=== PATIENT | female | born 1975 | race African-American/Black ===

== ENCOUNTER 2019-02-18 14:44 | Emergency (ER) | payer BC ==
[~2019-02-18] VITALS: Ht 167.6 cm; Wt 95.3 kg
[2019-02-18] MEDS ORDERED: methylPREDNISolone SOD SUCC PF 125 MG/2 ML VIAL. IV ONE (14:45)
[2019-02-18] MEDS ORDERED: diphenhydrAMINE 50 MG/ML VIAL IVP ONE (14:45)
[2019-02-18] MEDS ORDERED: FAMOTIDINE 20 MG/2 ML VIAL IVP ONE (14:45)
[2019-02-18] MEDS ORDERED: IV NORMAL SALINE 1000ML BAG 1,000 ML IV ONE (14:45)
[2019-02-18 14:54] VITALS: BP 178/90
--- NOTE | 2019-02-18 14:54 | PHYS DOC ---
Adult General Chief Complaint Chief Complaint: ALLERGIC REACTION HPI HPI Patient is a 43 year old female who presents with complaining of facial swelling and rash. Patient state she was picking up an old shelf from somebody's correlation with loss of dust and dirt and suddenly felt itching of her face and cubital area of swelling of eyelids and nasal congestion without shortness of breath, chest pain, nausea and vomiting, history of the same problem. Patient drove to the hospital by herself. Review of Systems Review of Systems Constitutional: Denies fever or chills [] Eyes: Denies change in visual acuity, redness, or eye pain [] HENT: Denies nasal congestion or sore throat [] Respiratory: Denies cough or shortness of breath [] Cardiovascular: No additional information not addressed in HPI [] GI: Denies abdominal pain, nausea, vomiting, bloody stools or diarrhea [] : Denies dysuria or hematuria [] Musculoskeletal: Denies back pain or joint pain [] Integument: Reports rash and itching Neurologic: Denies headache, focal weakness or sensory changes [] Endocrine: Denies polyuria or polydipsia [] All other systems were reviewed and found to be within normal limits, except as documented in this note. Current Medications Current Medications Current Medications Medications (Trade) Dose Ordered Sig/Calvin Start Time Stop Time Status Last Admin Dose Admin Diphenhydramine HCl (Benadryl) 50 mg 1X ONCE 02/18/19 14:45 02/18/19 15:04 DC 02/18/19 14:58 50 MG Famotidine (Pepcid Vial) 20 mg 1X ONCE 02/18/19 14:45 02/18/19 15:04 DC 02/18/19 14:58 20 MG Methylprednisolone Sodium Succinate (SOLU-Medrol 125MG VIAL) 125 mg 1X ONCE 02/18/19 14:45 02/18/19 15:04 DC 02/18/19 14:58 125 MG Sodium Chloride 1,000 ml @ 1,000 mls/hr 1X ONCE 02/18/19 14:45 02/18/19 15:44 DC 02/18/19 14:58 1,000 MLS/HR Allergies Allergies Allergies Coded Allergies Type Severity Reaction Last Updated Verified No Known Drug Allergies 02/18/19 No Physical Exam Physical Exam Constitutional: Well developed, well nourished, mild distress, non-toxic appearance. [] HENT: Normocephalic, atraumatic, bilateral external ears normal, oropharynx moist, no oral exudates, nasal congestion, facial erythema. [] Eyes: PERRLA, EOMI, conjunctiva edema, upper and lower eyelids edema, no discharge. [] Neck: Normal range of motion, no tenderness, supple, no stridor. [] Cardiovascular:Heart rate regular rhythm, no murmur [] Lungs & Thorax: Bilateral breath sounds clear to auscultation [] Abdomen: Bowel sounds normal, soft, no tenderness, no masses, no pulsatile masses. [] Skin: Warm, dry, papular rash on neck an bilateral cubital area Back: No tenderness, no CVA tenderness. [] Extremities: No tenderness, no cyanosis, no clubbing, ROM intact, no edema. [] Neurologic: Alert and oriented X 3, normal motor function, normal sensory function, no focal deficits noted. [] Psychologic: Affect normal, judgement normal, mood normal. [] Current Patient Data Vital Signs Vital Signs Date Time Temp Pulse Resp B/P (MAP) Pulse Ox O2 Delivery O2 Flow Rate FiO2 02/18/19 14:54 98.6 64 20 100 98.6 EKG EKG [] Radiology/Procedures Radiology/Procedures [] Course & Med Decision Making Course & Med Decision Making Pertinent Labs reviewed. (See chart for details) Evaluation of patient in ER showed 51-year-old patient with contact dermatitis and rash of face and upper extremities and eyelid edema after exposure to old samuel shelf without shortness of breath. Patient treated with IV fluids, menses, Pepcid and Solu-Medrol with improvement of her condition. She took a over after finishing treatment in ER and was advised to take prescription medication and follow up with her primary care physician. Dragon Disclaimer Dragon Disclaimer This electronic medical record was generated, in whole or in part, using a voice recognition dictation system. Departure Departure Impression: Primary Impression: Allergic reaction Disposition: HOME, SELF-CARE (at 1546) Condition: IMPROVED Patient Instructions: Rash Additional Instructions: Drink plenty of liquids Follow-up with your primary care physician in 3-5 days Return to ER if not getting better Scripts Methylprednisolone (MEDROL) 4 Mg Tab.ds.pk 1 PKG PO UD for inflammation, #1 PKG Prov: KOUSHA,NICK MD 02/18/19 Hydroxyzine Hcl (HYDROXYZINE HCL) 25 Mg Tablet 1 TAB PO TID PRN for itching, #30 TAB Prov: NICK MONTERROSO MD 02/18/19 Problem Qualifiers Primary Impression: Allergic reaction Encounter type: initial encounter Qualified Codes: T78.40XA - Allergy, unspecified, initial encounter NICK MONTERROSO MD Feb 18, 2019 14:54
[2019-02-18] MEDS ORDERED: HYDR25TA PO (15:45)
[2019-02-18] MEDS ORDERED: METH4TAB2 PO (15:45)
== END 2019-02-18 16:52 | disposition home or self-care (01) ==
LOC: ER 14:44
DX: T78.40XA Allergy, unspecified, initial encounter (principal)
CPT/HCPCS: 96374; 96375; 99284; J1200; J2930; J3490; J7030; 96361

== ENCOUNTER 2020-06-05 10:04 | Inpatient (IN) | payer OTHER ==
[~2020-06-05] VITALS: Ht 167.6 cm; Wt 105.3 kg
[~2020-06-05 10:04] MED LIST: HYDR25TA PO; METH4TAB2 PO
[2020-06-05] MEDS ORDERED: ASPIRIN 325 MG TABLET PO ONE (10:15)
[2020-06-05] MEDS ORDERED: IV NORMAL SALINE 1000ML BAG 1,000 ML IV ONE (10:15)
[2020-06-05] MEDS ORDERED: DEXAMETHASONE SOD PHOS 4 MG/ML VIAL IVP ONE (10:15)
--- NOTE | 2020-06-05 10:29 | PHYS DOC ---
Past Medical History Past Medical History: Depression, Other Additional Past Medical Histor: SVT Past Surgical History: Cholecystectomy Smoking Status: Never Smoker Alcohol Use: Rarely Drug Use: None General Adult EDM: Chief Complaint: CHEST PAIN HPI: HPI: Patient is a 44 year old female presents with report of sudden episode of midsternal chest pain that radiated to her left chest that started approximately 1 hour prior to arrival. Patient reports she became nauseated and vomited x3. Patient also reports associated diaphoresis. Patient reports pain has significantly improved since onset. Patient does report she was tested for COVID-19 on 05/29/2020 which came back positive. Patient had had some headache, subjective fever and chills, nasal congestion, and body aches. Reports those sy mptoms have improved. Denies shortness of breath, any leg swelling, or calf tenderness. Denies trauma. Patient reports cardiac risk factors of significant family history of CAD including father with heart attack in his 50s. Patient also reports father with history of PE/DVT. Review of Systems: Review of Systems: Constitutional: Reports subjective fever and chills and body aches Eyes: Denies redness or eye pain HENT: Denies nasal congestion or sore throat Respiratory: Denies cough or shortness of breath Cardiovascular: Reports chest pain; denies palpitations GI: Denies abdominal pain; reports nausea and vomiting : Denies dysuria or hematuria Musculoskeletal: Denies back pain or leg pain Integument: Denies rash or skin lesions Neurologic: Reports headache; denies focal weakness or sensory changes Complete systems were reviewed and found to be within normal limits, except as documented in this note. Heart Score: HEART Score for Chest Pain: HEART Score for Chest Pain Response (Comments) Value History Moderately Suspicious 1 ECG Normal 0 Age < 45 0 Risk Factors 1 or 2 Risk Factors 1 Troponin < Normal Limit 0 Total 2 Risk Factors: Risk Factors: DM, Current or recent (<one month) smoker, HTN, HLP, family history of CAD, obesity. Risk Scores: Score 0 - 3: 2.5% MACE over next 6 weeks - Discharge Home Score 4 - 6: 20.3% MACE over next 6 weeks - Admit for Clinical Observation Score 7 - 10: 72.7% MACE over next 6 weeks - Early Invasive Strategies Current Medications: Current Medications Medications (Trade) Dose Ordered Sig/Calvin Start Time Stop Time Status Last Admin Dose Admin Aspirin (Bartolo Aspirin) 325 mg 1X ONCE 06/05/20 10:15 06/05/20 10:17 DC Dexamethasone Sodium Phosphate (Decadron) 10 mg 1X ONCE 06/05/20 10:15 06/05/20 10:17 DC Sodium Chloride 1,000 ml @ 1,000 mls/hr 1X ONCE 06/05/20 10:15 06/05/20 11:14 Allergies: Allergies: Allergies Coded Allergies Type Severity Reaction Last Updated Verified No Known Drug Allergies 02/18/19 No Physical Exam: PE: Constitutional: Well developed, well nourished, no acute distress, non-toxic appearance HENT: Normocephalic, atraumatic Eyes: Conjunctiva normal, no discharge Neck: Normal range of motion, no tenderness, supple Lungs & Thorax: No respiratory distress, equal chest rise and fall Abdomen: Soft, no tenderness, no guarding/rebound tenderness/distention Skin: Warm, dry, no erythema, no rash Back: No tenderness, no CVA tenderness Extremities: No tenderness, ROM intact, no edema Neurologic: Alert and oriented X 3, no focal deficits noted Psychologic: Affect normal, judgment normal Current Patient Data: Vital Signs: Vital Signs Date Time Temp Pulse Resp B/P (MAP) Pulse Ox O2 Delivery O2 Flow Rate FiO2 06/05/20 10:12 97.7 68 16 178/89 (118) 97 Room Air 97.7 EKG: EKG: @1014 NSR at 63bpm, J point elevation noted to I and aVL, QRS 96ms, QT/QTc 438/452ms, t wave inversion III Radiology/Procedures: Radiology/Procedures: PROCEDURE: CT ANGIOGRAPHY CHEST CTA scan of the Chest with Contrast (Pulmonary Embolism protocol) 06/05/2020 Clinical History: Chest pain. Covid 19. Technique: After the intravenous administration of 100 cc of Omnipaque 350, contiguous, 0.625 mm axial sections were obtained through the chest. 2 mm axial and 3D MIP coronal and sagittal reconstructed images were obtained. One or more of the following individualized dose reduction techniques were utilized for this study: 1. Automated exposure control. 2. Adjustment of the mA and/or kV according to patient size. 3. Use of iterative reconstruction technique. Findings: No filling defect is seen within the major branches of either pulmonary artery. There is no CT evidence of pulmonary embolism. The heart and thoracic aorta are within normal limits. No acute pulmonary infiltrate, pleural effusion or pneumothorax is seen. Images through the upper abdomen demonstrate decreased attenuation of the liver parenchyma consistent with fatty infiltration. Minimal S-shaped curvature of the thoracolumbar spine is seen. Degenerative changes are seen involving the thoracic spine. Impression: There is no CT evidence of pulmonary embolism. Electronically signed by: Emmett Jane MD (06/05/2020 12:09 PM) [id number] Course & Med Decision Making: Course & Med Decision Making Pertinent Labs and Imaging studies reviewed. (See chart for details) Patient presents with sudden onset of atypical chest discomfort. Reports associated diaphoresis and nausea/vomiting x3 episodes. Patient with cardiac risk factors of significant family history. Patient also has risk factors of PE/DVT including family history and currently is COVID-19 positive. COVID-19 testing positive on 05/29/2020. COVID-[address] EKG stable. Labs obtained and posted to chart. Initial troponin within normal limits. Lipase greater than 2000. CTA chest without PE or other acute finding. Patient requiring admission for further evaluation and treatment. Discussed with Dr. Hopkins (hospitalist) who is in agreement with admission. Discussed findings and plan with patient, who acknowledges understanding and agreement. Keily Disclaimer: Keily Disclaimer: This electronic medical record was generated, in whole or in part, using a voice recognition dictation system. Departure Departure Impression: Primary Impression: Acute pancreatitis Qualified Codes: K85.90 - Acute pancreatitis without necrosis or infection, unspecified Additional Impressions: Atypical chest pain COVID-19 Disposition: ADMITTED INPT THIS HOSP Admitting Physician: EVETTE Sapp) Condition: STABLE Referrals: LATOYA CARD MSN, RN, STEAM ENGINEER (PCP) APOORVA HOU DO Jun 05, 2020 10:29
[2020-06-05] MEDS ORDERED: DEXAMETHASONE SOD PHOS 20 MG/5 ML VIAL. ONE (10:31)
[2020-06-05 10:47] LABS: CALCIUM 8.8 mg/dL (8.5-10.1); GFR 73.6; POTASSIUM 3.7 mmol/L (3.5-5.1)
[2020-06-05 10:58] LABS: BASO % 1 % (0-3); EOS # 0.1 x10^3/uL (0.0-0.7); EOS % 2 % (0-3); HEMATOCRIT 44.8 % (36.0-47.0); LYMPH # 2.2 x10^3/uL (1.0-4.8); LYMPH % 39 % (24-48); MEAN CORPUSCULAR HEMOGLOBIN 30 pg (25-35); MEAN CORPUSCULAR HGB CONC 34 g/dL (31-37); MEAN CORPUSCULAR VOLUME 88 fL (79-100); MONO # 0.4 x10^3/uL (0.0-1.1); MONO % 6 % (0-9); NEUT % 52 % (31-73); PLATELET COUNT 211 x10^3/uL (140-400); WHITE BLOOD COUNT 5.8 x10^3/uL (4.0-11.0)
[2020-06-05 10:59] LABS: ALBUMIN 3.4 g/dL (3.4-5.0); ALBUMIN/GLOBULIN RATIO 0.8 (1.0-1.7); MAGNESIUM 1.7 mg/dL (1.8-2.4); TOTAL BILIRUBIN 0.6 mg/dL (0.2-1.0); TOTAL PROTEIN 7.5 g/dL (6.4-8.2)
[2020-06-05 11:02] LABS: CREATINE KINASE 72 U/L (26-192)
[2020-06-05 11:23] LABS: PREG TEST PT QUAL NEGATIVE (NEG)
[2020-06-05] MEDS ORDERED: MAGNESIUM SULFATE 2GM 50 ML IV ONE (11:30)
[2020-06-05] MEDS ORDERED: IOHEXOL 350 MG/ML 100 ML VIAL. IV ONE (11:45)
[2020-06-05] MEDS ORDERED: CONTRAST GIVEN. MC PRN (11:45)
--- NOTE | 2020-06-05 12:12 | RAD ---
CTA scan of the Chest with Contrast (Pulmonary Embolism protocol) 06/05/2020 Clinical History: Chest pain. Covid 19. Technique: After the intravenous administration of 100 cc of Omnipaque 350, contiguous, 0.625 mm axia l sections were obtained through the chest. 2 mm axial and 3D MIP coronal and sagittal reconstructed images were obtained. One or more of the following individualized dose reduction techniques were utilized for this study: 1. Automated exposure control. 2. Adjustment of the mA and/or kV according to patient size. 3. Use of iterative reconstruction technique. Findings: No filling defect is seen within the major branches of either pulmonary artery. There is n o CT evidence of pulmonary embolism. The heart and thoracic aorta are within normal limits. No acute pulmonary infiltrate, pleural effusion or pneumothorax is seen. Images through the upper abdomen demonstrate decreased attenuation of the liver parenchyma consistent with fatty infiltration. Minimal S-shaped curvature of the thoracolumbar spine is seen. Degenerative changes are seen involvin g the thoracic spine. Impression: There is no CT evidence of pulmonary embolism. Electronically signed by: Emmett Jane MD (06/05/2020 12:09 PM) [id number]
[2020-06-05] MEDS ORDERED: fentaNYL PF VIAL 100 MCG/2 ML VIAL IV PRN (13:00)
[2020-06-05] MEDS ORDERED: ONDANSETRON PF 4 MG/2 ML VIAL. IV PRN ×2 (13:00→13:15)
[2020-06-05 13:14] LABS: BILIRUBIN,URINE NEGATIVE (NEG); CLARITY,URINE CLEAR; COLOR,URINE YELLOW; NITRITE,URINE NEGATIVE (NEG); PROTEIN,URINE NEGATIVE (NEG-TRACE); UROBILINOGEN,URINE 0.2 mg/dL (0.2 mg/dL)
[2020-06-05] MEDS ORDERED: DOCUSATE SODIUM 100 MG CAPSULE. PO PRN (13:15)
[2020-06-05] MEDS ORDERED: diphenhydrAMINE 50 MG/ML VIAL IVP PRN (13:15)
[2020-06-05] MEDS ORDERED: ZOLPIDEM 5 MG TABLET. PO PRN (13:15)
[2020-06-05] MEDS ORDERED: ACETAMINOPHEN 325 MG TABLET. PO PRN (13:15)
[2020-06-05] MEDS ORDERED: guaiFENesin ORAL 200 MG/10 ML LIQUID. PO PRN (13:15)
[2020-06-05 13:20] LABS: BACTERIA,URINE MODERATE /HPF (0-FEW)
[2020-06-05 13:21] LABS: RBC,URINE OCC /HPF (0-2)
[2020-06-05] MEDS: IV NORMAL SALINE 1000ML BAG 1,000 ML IV SCH ×2 (14:10→23:00)
[2020-06-05 15:00] VITALS: BP 140/93
--- NOTE | 2020-06-05 16:55 | PDOC2 ---
GI CONSULT Date of Service: DATE: 06/05/20 TIME: 16:44 Reason For Consult: pancreatitis HPI: HPI: 44 y/o female admitted through ER. COVID + 05/29/20 - has had fatigue, aches, and sinus congestion. Today developed pain - first described as left-sided chest pain and later says in central chest/epigastrium. Character of pain is difficult to describe. Associated w/ vomiting x 1 after eating grapefruit so emesis looked a little pink/red. Pain-free currently. Similar pain has occurred twice in the past - always after taking pain medication (names ibuprofen and Vicodin). Had cardiac workup once that was normal. No pancreatitis diagnosis in the past but does have a long h/o "GI pain" (upper abdominal discomfort and bloating toward the end of the day) and alternating bowel habits. Feels better when she eats healthy. S/p cholecystectomy at a few years ago for biliary dyskinesia. No previous EGD but recalls normal colonoscopy in her 20s (done for "GI pain"). No reflux/heartburn, dysphagia, hematochezia, melena, or weight loss. Most recent stools were a little loose. Mentions she was "sorta a bingey-drinker 20 years ago" but no longer drinks. PMH: PMH: anxiety, depression, SVT during cholecystectomy, x 2, tonsillectomy FH: Family History: No pertinent hx (deneis GI cancers, pancreatitis) Social History: Smoke: Quit ALCOHOL: other (some binge-drinking 20 years ago, none now) Drugs: None ROS: GEN: fatigue HEENT: sinus congestion CV: Denies chest pain RESP: Denies shortness of air, cough GI: Per HPI : Denies hematuria, dysuria ENDO: Denies weight changes NEURO: Denies confusion, dizziness MSK: bodyaches SKIN: Denies jaundice, pruritus Vitals: Vitals: Vital Signs Date Time Temp Pulse Resp B/P (MAP) Pulse Ox O2 Delivery O2 Flow Rate FiO2 06/05/20 16:02 Room Air 06/05/20 15:00 96.7 68 13 140/93 (109) 96.7 06/05/20 14:30 94 Labs: Labs: Laboratory Tests Test 06/05/20 10:25 06/05/20 13:00 06/05/20 16:10 White Blood Count 5.8 x10^3/uL (4.0-11.0) Red Blood Count 5.10 x10^6/uL (3.50-5.40) Hemoglobin 15.0 g/dL (12.0-15.5) Hematocrit 44.8 % (36.0-47.0) Mean Corpuscular Volume 88 fL (79-100) Mean Corpuscular Hemoglobin 30 pg (25-35) Mean Corpuscular Hemoglobin Concent 34 g/dL (31-37) Red Cell Distribution Width 13.0 % (11.5-14.5) Platelet Count 211 x10^3/uL (140-400) Neutrophils (%) (Auto) 52 % (31-73) Lymphocytes (%) (Auto) 39 % (24-48) Monocytes (%) (Auto) 6 % (0-9) Eosinophils (%) (Auto) 2 % (0-3) Basophils (%) (Auto) 1 % (0-3) Neutrophils # (Auto) 3.0 x10^3/uL (1.8-7.7) Lymphocytes # (Auto) 2.2 x10^3/uL (1.0-4.8) Monocytes # (Auto) 0.4 x10^3/uL (0.0-1.1) Eosinophils # (Auto) 0.1 x10^3/uL (0.0-0.7) Basophils # (Auto) 0.0 x10^3/uL (0.0-0.2) Sodium Level 138 mmol/L (136-145) Potassium Level 3.7 mmol/L (3.5-5.1) Chloride Level 106 mmol/L (98-107) Carbon Dioxide Level 27 mmol/L (21-32) Anion Gap 5 (6-14) Blood Urea Nitrogen 17 mg/dL (7-20) Creatinine 1.0 mg/dL (0.6-1.0) Estimated GFR (Cockcroft-Gault) 73.6 BUN/Creatinine Ratio 17 (6-20) Glucose Level 109 mg/dL (70-99) Lactic Acid Level 1.4 mmol/L (0.4-2.0) Calcium Level 8.8 mg/dL (8.5-10.1) Magnesium Level 1.7 mg/dL (1.8-2.4) Total Bilirubin 0.6 mg/dL (0.2-1.0) Aspartate Amino Transf (AST/SGOT) 30 U/L (15-37) Alanine Aminotransferase (ALT/SGPT) 38 U/L (14-59) Alkaline Phosphatase 83 U/L (46-116) Creatine Kinase 72 U/L (26-192) Creatine Kinase MB (Mass) 0.6 ng/mL (0.0-3.6) Creatine Kinase MB Relative Index % (0-4) Troponin I Quantitative < 0.017 ng/mL (0.000-0.055) < 0.017 ng/mL (0.000-0.055) < 0.017 ng/mL (0.000-0.055) IA-Ioz-P-Type Natriuretic Peptide 28 pg/mL (0-124) Total Protein 7.5 g/dL (6.4-8.2) Albumin 3.4 g/dL (3.4-5.0) Albumin/Globulin Ratio 0.8 (1.0-1.7) Lipase 2113 U/L (73-393) Serum Test, Qualitative Negative (NEG) Urine Collection Type Unknown Urine Color Yellow Urine Clarity Clear Urine pH 6.0 (<5.0-8.0) Urine Specific [place] >=1.030 (1.000-1.030) Urine Protein Negative mg/dL (NEG-TRACE) Urine Glucose (UA) Negative mg/dL (NEG) Urine Ketones (Stick) Negative mg/dL (NEG) Urine Blood Negative (NEG) Urine Nitrite Negative (NEG) Urine Bilirubin Negative (NEG) Urine Urobilinogen Dipstick 0.2 mg/dL (0.2 mg/dL) Urine Leukocyte Esterase Small (NEG) Urine RBC Occ /HPF (0-2) Urine WBC 5-10 /HPF (0-4) Urine Squamous Epithelial Cells Many /LPF Urine Bacteria Moderate /HPF (0-FEW) Ethyl Alcohol Level < 10 mg/dL (0-10) Allergies: Coded Allergies: No Known Drug Allergies (Unverified , 02/18/19) Medications: Current Medications Medications (Trade) Dose Ordered Sig/Calvin Route PRN Reason Start Time Stop Time Status Last Admin Dose Admin Aspirin (Bartolo Aspirin) 325 mg 1X ONCE PO 06/05/20 10:15 06/05/20 10:17 DC 06/05/20 10:38 Sodium Chloride 1,000 ml @ 1,000 mls/hr 1X ONCE IV 06/05/20 10:15 06/05/20 11:14 DC 06/05/20 10:38 Dexamethasone Sodium Phosphate (Decadron) 10 mg 1X ONCE IVP 06/05/20 10:15 06/05/20 10:17 DC 06/05/20 10:36 Magnesium Sulfate 50 ml @ 25 mls/hr 1X ONCE IV 06/05/20 11:30 06/05/20 13:29 DC 06/05/20 11:42 Iohexol (Omnipaque 350 Mg/ml) 100 ml 1X ONCE IV 06/05/20 11:45 06/05/20 11:46 DC 06/05/20 12:00 Sodium Chloride 1,000 ml @ 100 mls/hr Q10H IV 06/05/20 13:00 06/06/20 12:59 06/05/20 14:10 Imaging: Imaging: Chest CT Findings: No filling defect is seen within the major branches of either pulmonary artery. There is no CT evidence of pulmonary embolism. The heart and thoracic aorta are within normal limits. No acute pulmonary infiltrate, pleural effusion or pneumothorax is seen. Images through the upper abdomen demonstrate decreased attenuation of the liver parenchyma consistent with fatty infiltration. Minimal S-shaped curvature of the thoracolumbar spine is seen. Degenerative changes are seen involving the thoracic spine. Impression: There is no CT evidence of pulmonary embolism. PE: GEN: NAD HEENT: Atraumatic, PERRL LUNGS: CTAB HEART: RRR ABD: NABS, S/ND/NT EXTREMITY: No edema SKIN: No rashes, no jaundice NEURO/PSYCH: A & O 3 A/P: A/P: COVID-19 infection Pancreatitis - unclear etiology - ?some alcohol in the past - ?COVID-related H/o intermittent upper abdominal discomfort, bloating, and alternating bowel habits - ?GERD ?IBS CRC screen - colonoscopy 20 years ago S/p cholecystectomy Fatty liver BMI 36 -- Okay for clears, ADAT. Had chest CT in ER - no mention of pancreas on report - she tells me the ER told her they could see her pancreas. Reviewed w/ Dr. Mancilla who recommends proceeding w/ CT abdomen. She also reports similar episodes in the past w/ negative cardiac workup. Could consider outpt MRCP/EUS. Check triglycerides for completeness. Give empiric PPI. IVF per primary. JAYANT DOE Jun 05, 2020 16:55
--- NOTE | 2020-06-05 17:25 | EKG ---
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
[2020-06-05] MEDS: PANTOPRAZOLE IV PUSH 40 MG VIAL. IVP SCH (17:28)
--- NOTE | 2020-06-05 17:48 | PDOC1 ---
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 The patient denied radiation to the arm or the jaw she describes the pain as a ache 8 out of 10 intensity with no associated nausea but she did have one episode of emesis. She did not have sensation of impending doom no diaphoresis no abdominal pain in the lower quadrants was reported. She denied any urinary symptoms no CVA tenderness no fever or chills were reported. She has had similar episodes in the past with no association with food intake she denies sick contacts no travels outside the area no pets at home. Of note is that the patient was diagnosed with COVID-19 on May 29. The patient is doing quite well and her symptoms are improving she does not require oxygen supplementation at this time the patient seems to be much better after the initial intervention in the ER with IV fluids and pain medication administration. She denies alcohol abuse no dietary transgressions were reported she was found to have pancreatitis on work-up in the emergency department due to an elevated D-dimer she had a CTA done with no evidence of pulmonary emboli, plan of care has been explained detail and all of her concerns were addressed to the best of my abilities. Patient will be admitted for medical management of her acute pancreatitis Past Medical History Cardiovascular: Other (SVT) Psych: Depression Past Surgical History Past Surgical History: Cholecystectomy Family History Family History: No Significant Social History Smoke: No ALCOHOL: none Drugs: None Current Problem List Problem List Problems Medical Problems: (1) Acute pancreatitis Status: Acute (2) Atypical chest pain Status: Acute (3) COVID-19 Status: Acute Current Medications Current Medications Current Medications Medications (Trade) Dose Ordered Sig/Calvin Start Time Stop Time Status Last Admin Dose Admin Acetaminophen (Tylenol) 650 mg PRN Q4HRS PRN 06/05/20 13:15 Aspirin (Bartolo Aspirin) 325 mg 1X ONCE 06/05/20 10:15 06/05/20 10:17 DC 06/05/20 10:38 325 MG Dexamethasone Sodium Phosphate (Decadron) 20 mg STK-MED ONCE 06/05/20 10:31 06/05/20 10:31 DC Diphenhydramine HCl (Benadryl) 25 mg PRN Q4HRS PRN 06/05/20 13:15 Docusate Sodium (Colace) 100 mg PRN BID PRN 06/05/20 13:15 Enoxaparin Sodium (Lovenox 40mg Syringe) 40 mg Q24H 06/05/20 21:00 Fentanyl Citrate (Fentanyl 2ml Vial) 25 mcg PRN Q2HRS PRN 06/05/20 13:00 Guaifenesin (Robitussin) 200 mg PRN Q4HRS PRN 06/05/20 13:15 Info (CONTRAST GIVEN -- Rx MONITORING) 1 each PRN DAILY PRN 06/05/20 11:45 06/07/20 11:44 Iohexol (Omnipaque 350 Mg/ml) 100 ml 1X ONCE 06/05/20 11:45 06/05/20 11:46 DC 06/05/20 12:00 100 ML Magnesium Sulfate 50 ml @ 25 mls/hr 1X ONCE 06/05/20 11:30 06/05/20 13:29 DC 06/05/20 11:42 25 MLS/HR Ondansetron HCl (Zofran) 4 mg PRN Q4HRS PRN 06/05/20 13:15 Pantoprazole Sodium (PROTONIX VIAL for IV PUSH) 40 mg DAILYAC 06/05/20 17:00 06/05/20 17:28 40 MG Sodium Chloride 1,000 ml @ 100 mls/hr Q10H 06/05/20 13:00 06/06/20 12:59 06/05/20 14:10 100 MLS/HR Zolpidem Tartrate (Ambien) 5 mg PRN QHS PRN 06/05/20 13:15 Allergies Allergies Allergies Coded Allergies Type Severity Reaction Last Updated Verified No Known Drug Allergies 02/18/19 No ROS Review of System CONSTITUTIONAL: No fever or chills EYES: No recent changes SKIN: No rash or itching CARDIOVASCULAR: No chest pain, syncope, palpitations, or edema RESPIRATORY: No SOB or cough GASTROINTESTINAL: No nausea, vomiting or abdominal pain NEUROLOGICAL: No headaches or weakness ENDOCRINE: No cold or heat intolerance GENITOURINARY: No urgency or frequency of urination MUSCULOSKELETAL: No back pain or joint pain LYMPHATICS: No enlarged lymph nodes PSYCHIATRIC: No anxiety or depression Physical Exam Physical Exam GEN.: No apparent distress. Alert and oriented. HEENT: Head is normocephalic, atraumatic NECK: Supple. LUNGS: Clear to auscultation. HEART: RRR, S1, S2 present. Peripheral pulses intact ABDOMEN: Soft, nontender. Positive bowel sounds. EXTREMITIES: Without any cyanosis. NEUROLOGIC: Normal speech, normal tone PSYCHIATRIC: Normal affect, normal mood. SKIN: No ulcerations Vitals Vitals Vital Signs Date Time Temp Pulse Resp B/P (MAP) Pulse Ox O2 Delivery O2 Flow Rate FiO2 06/05/20 16:02 Room Air 06/05/20 15:00 96.7 68 13 140/93 (109) 96.7 06/05/20 14:30 94 Labs Labs Laboratory Tests Test 06/05/20 10:25 06/05/20 13:00 06/05/20 16:10 White Blood Count 5.8 x10^3/uL (4.0-11.0) Red Blood Count 5.10 x10^6/uL (3.50-5.40) Hemoglobin 15.0 g/dL (12.0-15.5) Hematocrit 44.8 % (36.0-47.0) Mean Corpuscular Volume 88 fL (79-100) Mean Corpuscular Hemoglobin 30 pg (25-35) Mean Corpuscular Hemoglobin Concent 34 g/dL (31-37) Red Cell Distribution Width 13.0 % (11.5-14.5) Platelet Count 211 x10^3/uL (140-400) Neutrophils (%) (Auto) 52 % (31-73) Lymphocytes (%) (Auto) 39 % (24-48) Monocytes (%) (Auto) 6 % (0-9) Eosinophils (%) (Auto) 2 % (0-3) Basophils (%) (Auto) 1 % (0-3) Neutrophils # (Auto) 3.0 x10^3/uL (1.8-7.7) Lymphocytes # (Auto) 2.2 x10^3/uL (1.0-4.8) Monocytes # (Auto) 0.4 x10^3/uL (0.0-1.1) Eosinophils # (Auto) 0.1 x10^3/uL (0.0-0.7) Basophils # (Auto) 0.0 x10^3/uL (0.0-0.2) Sodium Level 138 mmol/L (136-145) Potassium Level 3.7 mmol/L (3.5-5.1) Chloride Level 106 mmol/L (98-107) Carbon Dioxide Level 27 mmol/L (21-32) Anion Gap 5 (6-14) Blood Urea Nitrogen 17 mg/dL (7-20) Creatinine 1.0 mg/dL (0.6-1.0) Estimated GFR (Cockcroft-Gault) 73.6 BUN/Creatinine Ratio 17 (6-20) Glucose Level 109 mg/dL (70-99) Lactic Acid Level 1.4 mmol/L (0.4-2.0) Calcium Level 8.8 mg/dL (8.5-10.1) Magnesium Level 1.7 mg/dL (1.8-2.4) Total Bilirubin 0.6 mg/dL (0.2-1.0) Aspartate Amino Transf (AST/SGOT) 30 U/L (15-37) Alanine Aminotransferase (ALT/SGPT) 38 U/L (14-59) Alkaline Phosphatase 83 U/L (46-116) Creatine Kinase 72 U/L (26-192) Creatine Kinase MB (Mass) 0.6 ng/mL (0.0-3.6) Creatine Kinase MB Relative Index % (0-4) Troponin I Quantitative < 0.017 ng/mL (0.000-0.055) < 0.017 ng/mL (0.000-0.055) < 0.017 ng/mL (0.000-0.055) HF-Igh-H-Type Natriuretic Peptide 28 pg/mL (0-124) Total Protein 7.5 g/dL (6.4-8.2) Albumin 3.4 g/dL (3.4-5.0) Albumin/Globulin Ratio 0.8 (1.0-1.7) Lipase 2113 U/L (73-393) Serum Test, Qualitative Negative (NEG) Urine Collection Type Unknown Urine Color Yellow Urine Clarity Clear Urine pH 6.0 (<5.0-8.0) Urine Specific [place] >=1.030 (1.000-1.030) Urine Protein Negative mg/dL (NEG-TRACE) Urine Glucose (UA) Negative mg/dL (NEG) Urine Ketones (Stick) Negative mg/dL (NEG) Urine Blood Negative (NEG) Urine Nitrite Negative (NEG) Urine Bilirubin Negative (NEG) Urine Urobilinogen Dipstick 0.2 mg/dL (0.2 mg/dL) Urine Leukocyte Esterase Small (NEG) Urine RBC Occ /HPF (0-2) Urine WBC 5-10 /HPF (0-4) Urine Squamous Epithelial Cells Many /LPF Urine Bacteria Moderate /HPF (0-FEW) Ethyl Alcohol Level < 10 mg/dL (0-10) Laboratory Tests Test 06/05/20 10:25 06/05/20 13:00 06/05/20 16:10 White Blood Count 5.8 x10^3/uL (4.0-11.0) Red Blood Count 5.10 x10^6/uL (3.50-5.40) Hemoglobin 15.0 g/dL (12.0-15.5) Hematocrit 44.8 % (36.0-47.0) Mean Corpuscular Volume 88 fL (79-100) Mean Corpuscular Hemoglobin 30 pg (25-35) Mean Corpuscular Hemoglobin Concent 34 g/dL (31-37) Red Cell Distribution Width 13.0 % (11.5-14.5) Platelet Count 211 x10^3/uL (140-400) Neutrophils (%) (Auto) 52 % (31-73) Lymphocytes (%) (Auto) 39 % (24-48) Monocytes (%) (Auto) 6 % (0-9) Eosinophils (%) (Auto) 2 % (0-3) Basophils (%) (Auto) 1 % (0-3) Neutrophils # (Auto) 3.0 x10^3/uL (1.8-7.7) Lymphocytes # (Auto) 2.2 x10^3/uL (1.0-4.8) Monocytes # (Auto) 0.4 x10^3/uL (0.0-1.1) Eosinophils # (Auto) 0.1 x10^3/uL (0.0-0.7) Basophils # (Auto) 0.0 x10^3/uL (0.0-0.2) Sodium Level 138 mmol/L (136-145) Potassium Level 3.7 mmol/L (3.5-5.1) Chloride Level 106 mmol/L (98-107) Carbon Dioxide Level 27 mmol/L (21-32) Anion Gap 5 (6-14) Blood Urea Nitrogen 17 mg/dL (7-20) Creatinine 1.0 mg/dL (0.6-1.0) Estimated GFR (Cockcroft-Gault) 73.6 BUN/Creatinine Ratio 17 (6-20) Glucose Level 109 mg/dL (70-99) Lactic Acid Level 1.4 mmol/L (0.4-2.0) Calcium Level 8.8 mg/dL (8.5-10.1) Magnesium Level 1.7 mg/dL (1.8-2.4) Total Bilirubin 0.6 mg/dL (0.2-1.0) Aspartate Amino Transf (AST/SGOT) 30 U/L (15-37) Alanine Aminotransferase (ALT/SGPT) 38 U/L (14-59) Alkaline Phosphatase 83 U/L (46-116) Creatine Kinase 72 U/L (26-192) Creatine Kinase MB (Mass) 0.6 ng/mL (0.0-3.6) Creatine Kinase MB Relative Index % (0-4) Troponin I Quantitative < 0.017 ng/mL (0.000-0.055) < 0.017 ng/mL (0.000-0.055) < 0.017 ng/mL (0.000-0.055) TZ-Czd-J-Type Natriuretic Peptide 28 pg/mL (0-124) Total Protein 7.5 g/dL (6.4-8.2) Albumin 3.4 g/dL (3.4-5.0) Albumin/Globulin Ratio 0.8 (1.0-1.7) Lipase 2113 U/L (73-393) Serum Test, Qualitative Negative (NEG) Urine Collection Type Unknown Urine Color Yellow Urine Clarity Clear Urine pH 6.0 (<5.0-8.0) Urine Specific [place] >=1.030 (1.000-1.030) Urine Protein Negative mg/dL (NEG-TRACE) Urine Glucose (UA) Negative mg/dL (NEG) Urine Ketones (Stick) Negative mg/dL (NEG) Urine Blood Negative (NEG) Urine Nitrite Negative (NEG) Urine Bilirubin Negative (NEG) Urine Urobilinogen Dipstick 0.2 mg/dL (0.2 mg/dL) Urine Leukocyte Esterase Small (NEG) Urine RBC Occ /HPF (0-2) Urine WBC 5-10 /HPF (0-4) Urine Squamous Epithelial Cells Many /LPF Urine Bacteria Moderate /HPF (0-FEW) Ethyl Alcohol Level < 10 mg/dL (0-10) VTE Prophylaxis Ordered VTE Prophylaxis Devices: No VTE Pharmacological Prophylaxi: Yes Assessment/Plan Assessment/Plan Acute pancreatitis etiology undetermined COVID-19 infection History of GERD? History of cholecystectomy Obesity with a BMI of 36 Plan N.p.o. Lactated Ringer's Lipid panel in the a.m. Patient may take her medications with sips of water Further recommendations based on the clinical course Repeat labs in the a.m. Pain management DVT prophylaxis with Lovenox Justifications for Admission Other Justification MIA DELCID MD Jun 05, 2020 17:48
[2020-06-05 19:00] VITALS: BP 141/82
[2020-06-05] MEDS ORDERED: ENOXAPARIN 40 MG/0.4 ML SYRINGE. SQ SCH (21:00)
[2020-06-05 23:00] VITALS: BP 130/82
[2020-06-06 03:00] VITALS: BP 107/57
[2020-06-06] MEDS: PANTOPRAZOLE IV PUSH 40 MG VIAL. IVP SCH (07:49)
[2020-06-06 07:51] VITALS: BP 144/83
[2020-06-06] MEDS: IV NORMAL SALINE 1000ML BAG 1,000 ML IV SCH (09:00)
--- NOTE | 2020-06-06 09:04 | NUR ---
This RN nonadministered IV fluids, previous bag still infusing. Approx 850 mL remaining. Refer to EMAR for details.
[2020-06-06 09:32] LABS: CALCIUM 8.1 mg/dL (8.5-10.1); GFR 73.6; POTASSIUM 3.8 mmol/L (3.5-5.1)
[2020-06-06 09:38] LABS: ALBUMIN/GLOBULIN RATIO 0.8 (1.0-1.7); TOTAL BILIRUBIN 0.4 mg/dL (0.2-1.0); TOTAL PROTEIN 6.7 g/dL (6.4-8.2)
[2020-06-06 09:52] LABS: BASO % 0 % (0-3); EOS % 0 % (0-3); HEMOGLOBIN 14.5 g/dL (12.0-15.5); LYMPH # 1.6 x10^3/uL (1.0-4.8); LYMPH % 15 % (24-48); MEAN CORPUSCULAR HEMOGLOBIN 30 pg (25-35); MEAN CORPUSCULAR HGB CONC 34 g/dL (31-37); MEAN CORPUSCULAR VOLUME 88 fL (79-100); MONO # 0.2 x10^3/uL (0.0-1.1); MONO % 2 % (0-9); NEUT # 9.3 x10^3/uL (1.8-7.7); NEUT % 83 % (31-73); PLATELET COUNT 212 x10^3/uL (140-400); RED BLOOD COUNT 4.86 x10^6/uL (3.50-5.40); RED CELL DISTRIBUTION WIDTH 12.8 % (11.5-14.5); WHITE BLOOD COUNT 11.2 x10^3/uL (4.0-11.0)
--- NOTE | 2020-06-06 10:39 | PDOC ---
Date of Service: DATE: 06/06/20 TIME: 10:36 Subjective: Subjective: Last night had band like discomfort across upper abdomen and nausea. Tolerated full liquids this morning. Objective: Objective: D/w nurse - reported nausea but didn't ask for meds. Ordered CT last night - radiology scheduled for today - not done yet. Vital Signs: Vital Signs Date Time Temp Pulse Resp B/P (MAP) Pulse Ox O2 Delivery O2 Flow Rate FiO2 06/06/20 08:11 Room Air 06/06/20 07:51 97.0 65 18 144/83 (103) 99 97.0 Labs: Laboratory Tests Test 06/05/20 13:00 06/05/20 16:10 06/06/20 09:00 Urine Collection Type Unknown Urine Color Yellow Urine Clarity Clear Urine pH 6.0 Urine Specific [place] >=1.030 Urine Protein Negative mg/dL Urine Glucose (UA) Negative mg/dL Urine Ketones (Stick) Negative mg/dL Urine Blood Negative Urine Nitrite Negative Urine Bilirubin Negative Urine Urobilinogen Dipstick 0.2 mg/dL Urine Leukocyte Esterase Small Urine RBC Occ /HPF Urine WBC 5-10 /HPF Urine Squamous Epithelial Cells Many /LPF Urine Bacteria Moderate /HPF Troponin I Quantitative < 0.017 ng/mL < 0.017 ng/mL Ethyl Alcohol Level < 10 mg/dL White Blood Count 11.2 x10^3/uL Red Blood Count 4.86 x10^6/uL Hemoglobin 14.5 g/dL Hematocrit 43.0 % Mean Corpuscular Volume 88 fL Mean Corpuscular Hemoglobin 30 pg Mean Corpuscular Hemoglobin Concent 34 g/dL Red Cell Distribution Width 12.8 % Platelet Count 212 x10^3/uL Neutrophils (%) (Auto) 83 % Lymphocytes (%) (Auto) 15 % Monocytes (%) (Auto) 2 % Eosinophils (%) (Auto) 0 % Basophils (%) (Auto) 0 % Neutrophils # (Auto) 9.3 x10^3/uL Lymphocytes # (Auto) 1.6 x10^3/uL Monocytes # (Auto) 0.2 x10^3/uL Eosinophils # (Auto) 0.0 x10^3/uL Basophils # (Auto) 0.0 x10^3/uL Sodium Level 141 mmol/L Potassium Level 3.8 mmol/L Chloride Level 108 mmol/L Carbon Dioxide Level 24 mmol/L Anion Gap 9 Blood Urea Nitrogen 10 mg/dL Creatinine 1.0 mg/dL Estimated GFR (Cockcroft-Gault) 73.6 BUN/Creatinine Ratio 10 Glucose Level 165 mg/dL Calcium Level 8.1 mg/dL Total Bilirubin 0.4 mg/dL Aspartate Amino Transf (AST/SGOT) 19 U/L Alanine Aminotransferase (ALT/SGPT) 28 U/L Alkaline Phosphatase 72 U/L Total Protein 6.7 g/dL Albumin 3.0 g/dL Albumin/Globulin Ratio 0.8 Lipase 119 U/L PE: GEN: NAD - in COVID isolation, visual exam done LUNGS: CTAB HEART: RRR ABD: non-distended NEURO/PSYCH: A & O 3 A/P: COVID-19 infection Leukocytosis - mild/new today Pancreatitis - unclear etiology Suspect h/o GERD and IBS -- Keep to full liquids for now - d/w nurse. Await CT. Triglycerides normal. Continue PPI. Consider MRCP/EUS as outpt. Justicifation of Admission Dx: Justifications for Admission: Justification of Admission Dx: Yes JAYANT DOE Jun 06, 2020 10:39
[2020-06-06 10:49] VITALS: BP 158/83
--- NOTE | 2020-06-06 12:08 | PDOC ---
[employer] PROGRESS NOTE Date of Service DOS: DATE: 06/06/20 TIME: 11:58 Chief Complaint Chief Complaint Acute pancreatitis etiology undetermined COVID-19 infection History of GERD? 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 Notably COVID + 05/29/20 - has had fatigue, aches, and sinus congestion. Today developed pain - first described as left-sided chest pain and later says in central chest/epigastrium. Associated w/ vomiting x 1 after eating grapefruit. Had cardiac workup once that was normal. S/p cholecystectomy at a few years ago for biliary dyskinesia. No ETOH intake. CTPA negative for PE or pulmonary findings. Labs consistent with pancreatitis with lipase 2112 Afebrile. Not on supplemental oxygen. Urine returned with greater than 100,000 CFU. Pain resolved. Tolerating p.o. well. Underwent CT abdomen pelvis which was unremarkable except for peripancreatic edema which is mild no necrosis no other abnormalities. Vitals/I&O Vitals/I&O: Vital Signs Date Time Temp Pulse Resp B/P (MAP) Pulse Ox O2 Delivery O2 Flow Rate FiO2 06/06/20 10:49 98.1 62 18 158/83 (108) 97 Room Air 98.1 I & O 06/05/20 06/05/20 06/06/20 15:00 23:00 07:00 Intake Total 210 ml Balance 210 ml Physical Exam General: Alert, Oriented X3, Cooperative Heart: Regular rate, Normal S1, Normal S2 Lungs: Clear Abdomen: Normal bowel sounds, Soft Extremities: No clubbing, No cyanosis Skin: No rashes, No breakdown Labs Labs: Laboratory Tests Test 06/05/20 13:00 06/05/20 16:10 06/06/20 09:00 Urine Collection Type Unknown Urine Color Yellow Urine Clarity Clear Urine pH 6.0 (<5.0-8.0) Urine Specific [place] >=1.030 (1.000-1.030) Urine Protein Negative mg/dL (NEG-TRACE) Urine Glucose (UA) Negative mg/dL (NEG) Urine Ketones (Stick) Negative mg/dL (NEG) Urine Blood Negative (NEG) Urine Nitrite Negative (NEG) Urine Bilirubin Negative (NEG) Urine Urobilinogen Dipstick 0.2 mg/dL (0.2 mg/dL) Urine Leukocyte Esterase Small (NEG) Urine RBC Occ /HPF (0-2) Urine WBC 5-10 /HPF (0-4) Urine Squamous Epithelial Cells Many /LPF Urine Bacteria Moderate /HPF (0-FEW) Troponin I Quantitative < 0.017 ng/mL (0.000-0.055) < 0.017 ng/mL (0.000-0.055) Ethyl Alcohol Level < 10 mg/dL (0-10) White Blood Count 11.2 x10^3/uL (4.0-11.0) Red Blood Count 4.86 x10^6/uL (3.50-5.40) Hemoglobin 14.5 g/dL (12.0-15.5) Hematocrit 43.0 % (36.0-47.0) Mean Corpuscular Volume 88 fL (79-100) Mean Corpuscular Hemoglobin 30 pg (25-35) Mean Corpuscular Hemoglobin Concent 34 g/dL (31-37) Red Cell Distribution Width 12.8 % (11.5-14.5) Platelet Count 212 x10^3/uL (140-400) Neutrophils (%) (Auto) 83 % (31-73) Lymphocytes (%) (Auto) 15 % (24-48) Monocytes (%) (Auto) 2 % (0-9) Eosinophils (%) (Auto) 0 % (0-3) Basophils (%) (Auto) 0 % (0-3) Neutrophils # (Auto) 9.3 x10^3/uL (1.8-7.7) Lymphocytes # (Auto) 1.6 x10^3/uL (1.0-4.8) Monocytes # (Auto) 0.2 x10^3/uL (0.0-1.1) Eosinophils # (Auto) 0.0 x10^3/uL (0.0-0.7) Basophils # (Auto) 0.0 x10^3/uL (0.0-0.2) Sodium Level 141 mmol/L (136-145) Potassium Level 3.8 mmol/L (3.5-5.1) Chloride Level 108 mmol/L (98-107) Carbon Dioxide Level 24 mmol/L (21-32) Anion Gap 9 (6-14) Blood Urea Nitrogen 10 mg/dL (7-20) Creatinine 1.0 mg/dL (0.6-1.0) Estimated GFR (Cockcroft-Gault) 73.6 BUN/Creatinine Ratio 10 (6-20) Glucose Level 165 mg/dL (70-99) Calcium Level 8.1 mg/dL (8.5-10.1) Total Bilirubin 0.4 mg/dL (0.2-1.0) Aspartate Amino Transf (AST/SGOT) 19 U/L (15-37) Alanine Aminotransferase (ALT/SGPT) 28 U/L (14-59) Alkaline Phosphatase 72 U/L (46-116) Total Protein 6.7 g/dL (6.4-8.2) Albumin 3.0 g/dL (3.4-5.0) Albumin/Globulin Ratio 0.8 (1.0-1.7) Lipase 119 U/L (73-393) Assessment and Plan Assessmemt and Plan Problems Medical Problems: (1) Acute pancreatitis Status: Acute (2) Atypical chest pain Status: Acute (3) COVID-19 Status: Acute Comment Review of Relevant I have reviewed the following items destinee (where applicable) has been applied. Medications: Current Medications Medications (Trade) Dose Ordered Sig/Calvin Route PRN Reason Start Time Stop Time Status Last Admin Dose Admin Sodium Chloride 1,000 ml @ 100 mls/hr Q10H IV 06/05/20 13:00 06/06/20 12:59 06/05/20 23:00 Enoxaparin Sodium (Lovenox 40mg Syringe) 40 mg Q24H SQ 06/05/20 21:00 06/05/20 21:11 Pantoprazole Sodium (PROTONIX VIAL for IV PUSH) 40 mg DAILYAC IVP 06/05/20 17:00 06/06/20 10:40 DC 06/06/20 07:49 Justifications for Admission Other Justification ULISSES OMALLEY MD Jun 06, 2020 12:08
[2020-06-06] MEDS ORDERED: cefTRIAXone IV Push 1 GM VIAL. IVP SCH (13:00)
--- NOTE | 2020-06-06 13:48 | RAD ---
EXAMINATION: CT ABDOMEN+PELVIS WO (CT ABDOMEN/PELVIS WITHOUT IV CONTRAST) CLINICAL HISTORY: Pancreatitis TECHNIQUE: Non-IV contrast imaging of the abdomen and pelvis was performed using standard technique, scanning from just above the dome of the diaphragm to the symphysis pubis. Unenhanced imaging is hu ited for the evaluation of some intra-abdominal and pelvic pathology. CT Dose Reduction Employed: One or more of the following individualized dose reduction techniques wer e utilized for this examination: 1. Automated exposure control 2. Adjustment of the mA and/or kV ac cording to patient size 3. Use of iterative reconstruction technique. COMPARISON: CTA chest 06/05/2020 FINDINGS: Partially visualized heart and lung bases unremarkable. Question minimal peripancreatic edema at the pancreatic head versus partial voluming. Pancreas otherw ise unremarkable. Cholecystectomy. Liver, spleen, adrenal glands, and kidneys unremarkable. Mildly filled urinary bladder. IUD in place. Linear hyperdensity along the anterior uterine body may represent a surgical clip. Adnexa unremarkable. No dilated bowel. Normal appendix. No abdominal aortic or iliac artery aneurysm. Question minimal mesenteric edema in the epigastric reg ion, most notably at the level of the proximal superior mesenteric vessels. This is nonspecific and o f unclear clinical significance. Multilevel thoracolumbar degenerative changes. IMPRESSION: Questionable minimal edema surrounding the pancreatic head and proximal superior mesenteric vessels. This is nonspecific and possibly related to partial voluming, but could be related to early very mild pancreatitis. Clinical correlation with serum lipase levels recommended. Electronically signed by: Tray Barros DO (06/06/2020 1:46 PM) [facility]
[2020-06-06] MEDS ORDERED: SULF1TAB24 PO (14:30)
--- NOTE | 2020-06-06 14:48 | PDOC3 ---
Discharge Summary Visit Information Date of Admission: Jun 05, 2020 Date of Discharge: Jun 06, 2020 Admitting Diagnosis: Acute pancreatitis Final Diagnosis Problems Medical Problems: (1) Acute pancreatitis Status: Acute (2) Atypical chest pain Status: Acute (3) COVID-19 Status: Acute Brief Hospital Course Allergies Allergies Coded Allergies Type Severity Reaction Last Updated Verified No Known Drug Allergies 02/18/19 No Vital Signs Vital Signs Date Time Temp Pulse Resp B/P (MAP) Pulse Ox O2 Delivery O2 Flow Rate FiO2 06/06/20 10:49 98.1 62 18 158/83 (108) 97 Room Air 98.1 Lab Results Laboratory Tests Test 06/05/20 10:25 06/05/20 13:00 06/05/20 16:10 06/06/20 09:00 White Blood Count 5.8 x10^3/uL (4.0-11.0) 11.2 x10^3/uL (4.0-11.0) Red Blood Count 5.10 x10^6/uL (3.50-5.40) 4.86 x10^6/uL (3.50-5.40) Hemoglobin 15.0 g/dL (12.0-15.5) 14.5 g/dL (12.0-15.5) Hematocrit 44.8 % (36.0-47.0) 43.0 % (36.0-47.0) Mean Corpuscular Volume 88 fL (79-100) 88 fL (79-100) Mean Corpuscular Hemoglobin 30 pg (25-35) 30 pg (25-35) Mean Corpuscular Hemoglobin Concent 34 g/dL (31-37) 34 g/dL (31-37) Red Cell Distribution Width 13.0 % (11.5-14.5) 12.8 % (11.5-14.5) Platelet Count 211 x10^3/uL (140-400) 212 x10^3/uL (140-400) Neutrophils (%) (Auto) 52 % (31-73) 83 % (31-73) Lymphocytes (%) (Auto) 39 % (24-48) 15 % (24-48) Monocytes (%) (Auto) 6 % (0-9) 2 % (0-9) Eosinophils (%) (Auto) 2 % (0-3) 0 % (0-3) Basophils (%) (Auto) 1 % (0-3) 0 % (0-3) Neutrophils # (Auto) 3.0 x10^3/uL (1.8-7.7) 9.3 x10^3/uL (1.8-7.7) Lymphocytes # (Auto) 2.2 x10^3/uL (1.0-4.8) 1.6 x10^3/uL (1.0-4.8) Monocytes # (Auto) 0.4 x10^3/uL (0.0-1.1) 0.2 x10^3/uL (0.0-1.1) Eosinophils # (Auto) 0.1 x10^3/uL (0.0-0.7) 0.0 x10^3/uL (0.0-0.7) Basophils # (Auto) 0.0 x10^3/uL (0.0-0.2) 0.0 x10^3/uL (0.0-0.2) Sodium Level 138 mmol/L (136-145) 141 mmol/L (136-145) Potassium Level 3.7 mmol/L (3.5-5.1) 3.8 mmol/L (3.5-5.1) Chloride Level 106 mmol/L (98-107) 108 mmol/L (98-107) Carbon Dioxide Level 27 mmol/L (21-32) 24 mmol/L (21-32) Anion Gap 5 (6-14) 9 (6-14) Blood Urea Nitrogen 17 mg/dL (7-20) 10 mg/dL (7-20) Creatinine 1.0 mg/dL (0.6-1.0) 1.0 mg/dL (0.6-1.0) Estimated GFR (Cockcroft-Gault) 73.6 73.6 BUN/Creatinine Ratio 17 (6-20) 10 (6-20) Glucose Level 109 mg/dL (70-99) 165 mg/dL (70-99) Lactic Acid Level 1.4 mmol/L (0.4-2.0) Calcium Level 8.8 mg/dL (8.5-10.1) 8.1 mg/dL (8.5-10.1) Magnesium Level 1.7 mg/dL (1.8-2.4) Total Bilirubin 0.6 mg/dL (0.2-1.0) 0.4 mg/dL (0.2-1.0) Aspartate Amino Transf (AST/SGOT) 30 U/L (15-37) 19 U/L (15-37) Alanine Aminotransferase (ALT/SGPT) 38 U/L (14-59) 28 U/L (14-59) Alkaline Phosphatase 83 U/L (46-116) 72 U/L (46-116) Creatine Kinase 72 U/L (26-192) Creatine Kinase MB (Mass) 0.6 ng/mL (0.0-3.6) Creatine Kinase MB Relative Index % (0-4) Troponin I Quantitative < 0.017 ng/mL (0.000-0.055) < 0.017 ng/mL (0.000-0.055) < 0.017 ng/mL (0.000-0.055) IG-Quq-M-Type Natriuretic Peptide 28 pg/mL (0-124) Total Protein 7.5 g/dL (6.4-8.2) 6.7 g/dL (6.4-8.2) Albumin 3.4 g/dL (3.4-5.0) 3.0 g/dL (3.4-5.0) Albumin/Globulin Ratio 0.8 (1.0-1.7) 0.8 (1.0-1.7) Triglycerides Level 64 mg/dL (0-150) Lipase 2113 U/L (73-393) 119 U/L (73-393) Serum Test, Qualitative Negative (NEG) Urine Collection Type Unknown Urine Color Yellow Urine Clarity Clear Urine pH 6.0 (<5.0-8.0) Urine Specific [place] >=1.030 (1.000-1.030) Urine Protein Negative mg/dL (NEG-TRACE) Urine Glucose (UA) Negative mg/dL (NEG) Urine Ketones (Stick) Negative mg/dL (NEG) Urine Blood Negative (NEG) Urine Nitrite Negative (NEG) Urine Bilirubin Negative (NEG) Urine Urobilinogen Dipstick 0.2 mg/dL (0.2 mg/dL) Urine Leukocyte Esterase Small (NEG) Urine RBC Occ /HPF (0-2) Urine WBC 5-10 /HPF (0-4) Urine Squamous Epithelial Cells Many /LPF Urine Bacteria Moderate /HPF (0-FEW) Ethyl Alcohol Level < 10 mg/dL (0-10) Laboratory Tests Test 06/05/20 16:10 06/06/20 09:00 Troponin I Quantitative < 0.017 ng/mL (0.000-0.055) White Blood Count 11.2 x10^3/uL (4.0-11.0) Red Blood Count 4.86 x10^6/uL (3.50-5.40) Hemoglobin 14.5 g/dL (12.0-15.5) Hematocrit 43.0 % (36.0-47.0) Mean Corpuscular Volume 88 fL (79-100) Mean Corpuscular Hemoglobin 30 pg (25-35) Mean Corpuscular Hemoglobin Concent 34 g/dL (31-37) Red Cell Distribution Width 12.8 % (11.5-14.5) Platelet Count 212 x10^3/uL (140-400) Neutrophils (%) (Auto) 83 % (31-73) Lymphocytes (%) (Auto) 15 % (24-48) Monocytes (%) (Auto) 2 % (0-9) Eosinophils (%) (Auto) 0 % (0-3) Basophils (%) (Auto) 0 % (0-3) Neutrophils # (Auto) 9.3 x10^3/uL (1.8-7.7) Lymphocytes # (Auto) 1.6 x10^3/uL (1.0-4.8) Monocytes # (Auto) 0.2 x10^3/uL (0.0-1.1) Eosinophils # (Auto) 0.0 x10^3/uL (0.0-0.7) Basophils # (Auto) 0.0 x10^3/uL (0.0-0.2) Sodium Level 141 mmol/L (136-145) Potassium Level 3.8 mmol/L (3.5-5.1) Chloride Level 108 mmol/L (98-107) Carbon Dioxide Level 24 mmol/L (21-32) Anion Gap 9 (6-14) Blood Urea Nitrogen 10 mg/dL (7-20) Creatinine 1.0 mg/dL (0.6-1.0) Estimated GFR (Cockcroft-Gault) 73.6 BUN/Creatinine Ratio 10 (6-20) Glucose Level 165 mg/dL (70-99) Calcium Level 8.1 mg/dL (8.5-10.1) Total Bilirubin 0.4 mg/dL (0.2-1.0) Aspartate Amino Transf (AST/SGOT) 19 U/L (15-37) Alanine Aminotransferase (ALT/SGPT) 28 U/L (14-59) Alkaline Phosphatase 72 U/L (46-116) Total Protein 6.7 g/dL (6.4-8.2) Albumin 3.0 g/dL (3.4-5.0) Albumin/Globulin Ratio 0.8 (1.0-1.7) Lipase 119 U/L (73-393) Brief Hospital Course 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 Notably COVID + 05/29/20 - has had fatigue, aches, and sinus congestion. Today developed pain - first described as left-sided chest pain and later says in central chest/epigastrium. Associated w/ vomiting x 1 after eating grapefruit. Had cardiac workup once that was normal. S/p cholecystectomy at a few years ago for biliary dyskinesia. No ETOH intake. CTPA negative for PE or pulmonary findings. Labs consistent with pancreatitis with lipase 2112 Pain improved after overnight fluids IV pain and IV nausea medication. Afebrile. Not on supplemental oxygen. Urine returned with greater than 100,000 CFU. Started on empiric Rocephin and discharged on empiric Bactrim. CT ABDOMEN+PELVIS WO (CT ABDOMEN/PELVIS WITHOUT IV CONTRAST) Partially visualized heart and lung bases unremarkable. Question minimal peripancreatic edema at the pancreatic head versus partial voluming. Pancreas otherwise unremarkable. Cholecystectomy. Liver, spleen, adrenal glands, and kidneys unremarkable. Mildly filled urinary bladder. IUD in place. Linear hyperdensity along the anterior uterine body may represent a surgical clip. Adnexa unremarkable. No dilated bowel. Normal appendix. No abdominal aortic or iliac artery aneurysm. Question minimal mesenteric edema in the epigastric region, most notably at the level of the proximal superior mesenteric vessels. This is nonspecific and of unclear clinical significance. Multilevel thoracolumbar degenerative changes. IMPRESSION: Questionable minimal edema surrounding the pancreatic head and proximal superior mesenteric vessels. This is nonspecific and possibly related to partial voluming, but could be related to early very mild pancreatitis. Clinical correlation with serum lipase levels recommended. Consults: GI Problem list: Acute pancreatitis - likely covid 19 related. has outpatient GI referral given this is her 3rd episode of similar abdominal pain COVID-19 infection History of GERD? History of cholecystectomy Obesity with a BMI of 36 UTI Greater than 30 minutes spent on d/c home Discharge Information Condition at Discharge: Improved Follow Up: Weeks Disposition/Orders: D/C to Home Scheduled Sulfamethoxazole/Trimethoprim (Bactrim Ds Tablet) 1 Each Tablet, 1 TAB PO BID for UTI for 3 Days, #6 Ref 0 Prescribed by: ULISSES OMALLEY MD on 06/06/20 1430 Discontinued Medications Hydroxyzine Hcl (Hydroxyzine Hcl) 25 Mg Tablet, 1 TAB PO TID PRN for itching, #30 Prescribed by: NICK MONTERROSO MD on 02/18/19 1545 Info (No Known Medications Prior To Admisstion) Each, 1 EACH MC DAILY for UNK, (Reported) Entered as Reported by: CARA ESCUDERO on 06/05/201614 Last Action: New Order on 06/05/201614 by CARA ESCUDERO Methylprednisolone (Medrol) 4 Mg Tab.ds.pk, 1 PKG PO UD for inflammation, #1 Prescribed by: NICK MONTERROSO MD on 02/18/19 1545 Justicifation of Admission Dx: Justifications for Admission: Justification of Admission Dx: Yes ULISSES OMALLEY MD Jun 06, 2020 14:48
[2020-06-06 15:24] VITALS: BP 151/72
--- NOTE | 2020-06-06 15:52 | NUR ---
Pt left unit by ambulation via private vehicle at approx 1550. Pt's IV removed without complication, VSS. Discharge paperwork and follow-up discussed with pt.
--- NOTE | 2020-06-06 17:24 | NUR ---
SW following for discharge planning. Spoke with RN and reviewed chart. Pt to discharge home today, 06/06 self-care. No SW needs identified.
[2020-06-07] MEDS ORDERED: PANTOPRAZOLE 40 MG TABLET.DR. PO SCH (07:30)
== END 2020-06-06 15:56 | disposition home or self-care (01) | DRG 177 ==
LOC: ER 10:04 → 6 SOUTH 12:55
PROVIDERS: ADMIT Internal Medicine; ATTEND Internal Medicine
DX: U07.1 COVID-19 (principal); K85.90 Acute pancreatitis without necrosis or infection, unspecified; I47.1 Supraventricular tachycardia; N39.0 Urinary tract infection, site not specified; K86.1 Other chronic pancreatitis; R07.2 Precordial pain; E66.9 Obesity, unspecified; F32.9 Major depressive disorder, single episode, unspecified; F41.9 Anxiety disorder, unspecified; Z82.49 Family history of ischemic heart disease and other diseases of the circulatory system; Z90.49 Acquired absence of other specified parts of digestive tract; Z97.5 Presence of (intrauterine) contraceptive device; K21.9 Gastro-esophageal reflux disease without esophagitis; Z20.822 Contact with and (suspected) exposure to COVID-19; Z68.37 Body mass index [BMI] 37.0-37.9, adult
CPT/HCPCS: 36415; 71275; 74176; 80053; 81001; 82553; 83605; 83690; 83735; 83880; 84478; 84484; 84703; 85025; 87086; 93005; 96361; 96365; 96375; C9113; G0480; J0696; J1100; J1650; J3475; J7030; Q9967; 99285-25; G0378